=== PATIENT | male | born 2000 | race African-American/Black ===

== ENCOUNTER 2018-05-26 20:23 | Emergency (ER) | payer BC, MEDICAID, SELFPAY ==
[2018-05-26] MEDS ORDERED: Lidocaine 1% 20 ML MDV ONE (20:48)
== END 2018-05-26 21:07 | disposition home or self-care (01) ==
LOC: NAV ERS 20:23
DX: S01.511A Laceration without foreign body of lip, initial encounter (principal); W50.0XXA Accidental hit or strike by another person, initial encounter
CPT/HCPCS: 12011; J2001

== ENCOUNTER 2019-01-03 17:23 | Emergency (ER) | payer BC, SELFPAY ==
[2019-01-03] MEDS ORDERED: Ketorolac Tromethamine 60 MG/2 ML VIAL ONE (18:01)
[2019-01-03] MEDS ORDERED: Ibuprofen 800 MG TAB ONE (18:02)
== END 2019-01-03 18:05 | disposition home or self-care (01) ==
LOC: NAV ERS 17:23
DX: S83.92XA Sprain of unspecified site of left knee, initial encounter (principal); X50.9XXA Other and unspecified overexertion or strenuous movements or postures, initial encounter
CPT/HCPCS: 99283; J1885